=== PATIENT | female | born 1940 | race Caucasian/White ===

== ENCOUNTER → 2020-07-11 | Outpatient (CLI) | payer MEDICARE ==
[~2020-07-11] MED LIST: LEVO88TA43 PO; LOVA40TA2 PO
[2020-07-11 14:37] LABS: BASOPHILS % (AUTO) 1 % (0-1); EOSINOPHILS % (AUTO) 2 % (1-7); LYMPHOCYTES % (AUTO) 22 % (22-44); MEAN CORPUSCULAR HEMOGLOBIN 31.4 pg (27.0-34.8); MEAN CORPUSCULAR HGB CONC 32.9 g/dL (32.4-35.8); MEAN PLATELET VOLUME 8.2 fL (7.4-10.4); MONOCYTES % (AUTO) 11 % (2-9); NEUTROPHILS % (AUTO) 64 % (42-75); PLATELET COUNT 328 x10^3/uL (130-400); RED BLOOD COUNT 4.32 x10^6/uL (3.82-5.3); RED CELL DISTRIBUTION WIDTH 13.5 % (9.6-15.2)
[2020-07-11 14:42] LABS: MD NO
[2020-07-11 14:46] LABS: INTERNATIONAL NORMALIZED RATIO 0.91 (0.93-1.1); PROTHROMBIN TIME 9.4 Seconds (9.6-11.5)
[2020-07-11 14:48] LABS: ALANINE AMINOTRANSFERASE 21 U/L (12-78); ALBUMIN 3.3 g/dL (3.4-5.0); CALCIUM 8.5 mg/dL (8.5-10.1)
[2020-07-11 14:51] LABS: ALKALINE PHOSPHATASE 73 U/L (45-117); BILIRUBIN,TOTAL 0.3 mg/dL (0.2-1.0); CREATININE 0.69 mg/dL (0.55-1.02); TOTAL PROTEIN 6.6 g/dL (6.4-8.2)
[2020-07-11 14:55] LABS: ANION GAP 5 mmol/L (5-15); CHLORIDE 108 mmol/L (98-107)
== END | disposition home or self-care (01) ==
LOC: STAR 12:29
PROVIDERS: ATTEND Orthopaedic Surgery
DX: Z01.812 Encounter for preprocedural laboratory examination (principal); Z20.828 Contact with and (suspected) exposure to other viral communicable diseases; M16.11 Unilateral primary osteoarthritis, right hip; I21.09 ST elevation (STEMI) myocardial infarction involving other coronary artery of anterior wall
CPT/HCPCS: 36415; 80053; 83036; 85025; 85610; 85730; 87081; 87147; 87635; 87806; 93005; G0475

== ENCOUNTER 2020-07-15 09:05 | Observation (INO) | payer MEDICARE ==
[~2020-07-15] VITALS: Ht 167.6 cm; Wt 65.0 kg
[~2020-07-15 09:05] MED LIST changes: +EPINEPHRINE 1 MG/ML, 1ML ONE; +KETOROLAC 60 MG/2 ML ONE; +ROPIvacaine/PF 0.2%, 20 ML ONE; +SODIUM CHLORIDE 0.9% 50 ML ONE; +TRANEXAMIC ACID 100 MG/ML, 10ML ONE
[2020-07-15] MEDS ORDERED: POLYETHYLENE GLYCOL 17 GM PACKET PO PRN (09:30)
[2020-07-15] MEDS ORDERED: PSYLLIUM PACKET PO PRN (09:30)
[2020-07-15] MEDS ORDERED: SENNA/DOCUSATE TABLET PO PRN (09:30)
[2020-07-15] MEDS ORDERED: ALUMINUM/MAG/SIMETHICONE 30 ML UDC PO PRN (09:30)
[2020-07-15] MEDS ORDERED: ONDANSETRON 4 MG TABLET PO PRN (09:30)
[2020-07-15] MEDS ORDERED: DIPHENHYDRAMINE 50 MG/ML, 1ML IVPush PRN (09:30)
[2020-07-15] MEDS ORDERED: DIPHENHYDRAMINE 50 MG CAPSULE PO PRN (09:30)
[2020-07-15] MEDS ORDERED: ONDANSETRON 2MG/ML, 2ML IVPush PRN ×2 (09:30→11:30)
[2020-07-15] MEDS ORDERED: HYDROmorphone 1 MG/ML, 1ML INJ IVPush PRN ×2 (09:30→11:30)
[2020-07-15] MEDS ORDERED: OXYcodone IR 5MG TABLET PO PRN (09:30)
[2020-07-15] MEDS ORDERED: DEXAMETHASONE 4 MG/ML, 1ML IVPush SCH (09:30)
[2020-07-15] MEDS ORDERED: CEFAZOLIN PMX 1GM/50ML 50 ML IVPB SCH ×2 (09:30→18:30)
[2020-07-15] MEDS ORDERED: MAGNESIUM HYDROXIDE 8%, 30ML UDC PO PRN (09:30)
[2020-07-15] MEDS ORDERED: ACETAMINOPHEN 650 MG/20.3 ML UDC PO PRN (09:30)
[2020-07-15] MEDS ORDERED: POTASSIUM CHLORIDE 20 MEQ in D5%-0.45% NACL 1,000 ML IV SCH (09:30)
[2020-07-15] MEDS ORDERED: CHLORHEXIDINE 15 ML UDC ONE (10:15)
[2020-07-15] MEDS ORDERED: GABAPENTIN 300 MG CAPSULE ONE (10:29)
[2020-07-15] MEDS ORDERED: ACETAMINOPHEN 500 MG TABLET ONE (10:29)
[2020-07-15] MEDS ORDERED: ACETAMINOPHEN 500 MG TABLET PO ONE (10:30)
[2020-07-15] MEDS ORDERED: CHLORHEXIDINE 15 ML UDC MM ONE (10:30)
[2020-07-15] MEDS ORDERED: GABAPENTIN 300 MG CAPSULE PO ONE (10:30)
[2020-07-15] MEDS ORDERED: LACTATED RINGERS 1,000 ML IV SCH (10:30)
[2020-07-15] MEDS ORDERED: PROPOFOL 10 MG/ML, 20ML ONE (10:54)
[2020-07-15] MEDS ORDERED: DEXAMETHASONE 4 MG/ML, 1ML ONE (10:54)
[2020-07-15] MEDS ORDERED: ONDANSETRON 2MG/ML, 2ML ONE (10:54)
[2020-07-15] MEDS ORDERED: ESMOLOL 100 MG/10 ML ONE (10:54)
[2020-07-15] MEDS ORDERED: CEFAZOLIN 1,000 MG ONE (10:54)
[2020-07-15] MEDS ORDERED: hydrALAzine 20 MG/ML, 1ML IV PRN (11:30)
[2020-07-15] MEDS ORDERED: LABETALOL 5MG/ML, 20ML IV PRN (11:30)
[2020-07-15] MEDS ORDERED: OXYcodone 5 MG/5 ML ORAL.SOL UDC PO PRN (11:30)
[2020-07-15] MEDS ORDERED: FENTANYL PF 250 MCG/5ML ONE (11:31)
[2020-07-15] MEDS ORDERED: FENTANYL PF 100 MCG/2ML ONE ×2 (12:28→12:57)
[2020-07-15] MEDS: FENTANYL PF 100 MCG/2ML IV PRN ×4 (12:30→13:02)
[2020-07-15] MEDS ORDERED: TRANEXAMIC ACID 1,000 MG in SODIUM CHLORIDE 0.9% 100 ML IVPB ONE (12:30)
[2020-07-15] MEDS ORDERED: OXYcodone 5 MG/5 ML ORAL.SOL UDC ONE (12:42)
[2020-07-15] MEDS: KETOROLAC 30 MG/1 ML IV SCH ×2 (14:12→17:35)
[2020-07-15] MEDS ORDERED: ASPI-515 PO (15:05)
[2020-07-15] MEDS ORDERED: ESCI5TAB7 PO (16:24)
[2020-07-15] MEDS ORDERED: TAMSULOSIN 0.4 MG CAP.ER.24H PO SCH (18:00)
[2020-07-15] MEDS ORDERED: ASPIRIN 81 MG TABLET EC PO SCH (18:00)
[2020-07-15 19:27] VITALS: BP 118/60
[2020-07-15] MEDS ORDERED: DOCUSATE 100 MG CAPSULE PO SCH (21:00)
[2020-07-16] MEDS ORDERED: LEVOTHYROXINE 88 MCG TABLET PO SCH (06:00)
[2020-07-16] MEDS ORDERED: LOVASTATIN 40 MG TABLET PO SCH (09:00)
== END 2020-07-15 19:50 | disposition home or self-care (01) ==
LOC: OUT 09:05 → ORIP 09:17 → 3WST 14:10
PROVIDERS: ADMIT Orthopaedic Surgery; ATTEND Orthopaedic Surgery
DX: M16.11 Unilateral primary osteoarthritis, right hip (principal); E78.5 Hyperlipidemia, unspecified; E03.9 Hypothyroidism, unspecified; Z88.0 Allergy status to penicillin; Z79.899 Other long term (current) drug therapy
CPT/HCPCS: 27130; 36415; 72170; 86850; 86900; 96365; 96375; 97163; C1713; C1776; G0378; J0171; J0690; J1100; J1885; J2405; J2704; J2795; J3010